=== PATIENT | female | born 1995 | race Caucasian/White ===

== ENCOUNTER 2018-08-16 00:02 | Emergency (ER) | payer SELFPAY ==
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
[2018-08-16 00:12] VITALS: BP 107/75; PULSE 95; TEMP 97.6; BMI 20.3
[2018-08-16 01:56] LABS: HCG,QUALITATIVE URINE Negative
[2018-08-16 01:58] LABS: URINE APPEARANCE CLOUDY; URINE BILIRUBIN NEGATIVE (<2.0 mg/dL); URINE COLOR YELLOW; URINE GLUCOSE (UA) NEGATIVE (NEGATIVE); URINE KETONE NEGATIVE (NEGATIVE); URINE LEUK ESTERASE NEGATIVE (NEGATIVE); URINE NITRITE POSITIVE (NEGATIVE); URINE PROTEIN NEGATIVE (NEGATIVE); URINE UROBILINOGEN NEGATIVE mg/dL (0.2-1.0)
[2018-08-16 02:04] LABS: EPI CELLS RARE /HPF (FEW); URINE BACTERIA RARE /hpf (NONE SEEN); URINE MUCUS FEW
== END 2018-08-16 01:40 | disposition home or self-care (01) ==
LOC: FER 00:02
DX: S00.03XA Contusion of scalp, initial encounter (principal); T14.8XXA Other injury of unspecified body region, initial encounter; Y00.XXXA Assault by blunt object, initial encounter; Y93.9 Activity, unspecified; Y92.9 Unspecified place or not applicable
CPT/HCPCS: 81003; 81015; 84703; 87086; 87186; 99281-25

== ENCOUNTER 2018-08-21 01:57 | Emergency (ER) | payer SELFPAY ==
[2018-08-21] MEDS ORDERED: ACETAMINOPHEN 500 MG TABLET (FP) PO ONE (02:04)
[2018-08-21] MEDS ORDERED: METOCLOPRAMIDE HCL INJECTION 10 MG/2 ML VIAL IM ONE (02:04)
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
[2018-08-21 02:09] VITALS: BP 106/66; PULSE 87; BMI 20.3
[2018-08-21] MEDS ORDERED: METOCLOPRAMIDE HCL INJECTION 10 MG/2 ML VIAL ONE (02:10)
[2018-08-21] MEDS ORDERED: ACETAMINOPHEN 500 MG TABLET (FP) ONE (02:10)
== END 2018-08-21 03:54 | disposition home or self-care (01) ==
LOC: FER 01:57
PROC: 3E013GC Introduction of Other Therapeutic Substance into Subcutaneous Tissue, Percutaneous Approach (ICD-10-PCS; principal; 2018-08-21)
DX: F07.81 Postconcussional syndrome (principal)
CPT/HCPCS: 70450-TC; 72125-TC; 99281-25

== ENCOUNTER 2020-07-07 00:05 | Emergency (ER) | payer OTHER ==
[2020-07-07 00:54] VITALS: BP 114/60; PULSE 96; TEMP 98.5; BMI 21.2
[2020-07-07 01:45] LABS: EPI CELLS >36 /uL (0-25.1); HYALINE CASTS 1 /uL (0-3.1); PH,URINE 6.5 (5.0-8.0); URINE APPEARANCE CLOUDY; URINE BACTERIA 2815 /uL (0-1359); URINE BILIRUBIN NEGATIVE (NEGATIVE); URINE COLOR YELLOW; URINE GLUCOSE (UA) NEGATIVE (NEGATIVE); URINE KETONE NEGATIVE (NEGATIVE); URINE LEUK ESTERASE 1+ (NEGATIVE); URINE NITRITE NEGATIVE (NEGATIVE); URINE PROTEIN NEGATIVE (NEGATIVE); URINE RBC 3 /uL (0-23.9); URINE UROBILINOGEN 0.2 mg/dL (0.2-1.0); URINE WBC 58 /uL (0-25.8)
== END 2020-07-07 03:08 | disposition home or self-care (01) ==
LOC: JER 00:05
DX: N76.0 Acute vaginitis (principal); N30.00 Acute cystitis without hematuria
CPT/HCPCS: 36415; 81003; 84703; 87086; 87186; 87491; 87591; 99283-25